=== PATIENT | male | born 1930 | race Caucasian/White ===

== ENCOUNTER 2018-09-05 08:21 | Inpatient (IN) | payer MEDICARE, BC ==
[~2018-09-05] VITALS: Ht 167.6 cm; Wt 93.0 kg
--- NOTE | 2018-09-05 08:50 | NUR ---
ED Nurse Note: patient walked into ED from home, ambulatory with cane, c/o back pain mainly on the left lower back. patient reports pain 10/10. patient reports fall on the rug at home on 09/03/18. patient is alert awake x4 girlfriend at bedside
--- NOTE | 2018-09-05 08:56 | Emergency Room Report ---
History of Present Illness General Chief Complaint: Lower Back Pain or Injury Source: Patient, Family Member Present Illness HPI The patient slipped on a rug on . He fell onto his back. He's been having difficulty ambulating at home. The pain is severe at this time and the left lower back and also upper back. He tried Tylenol but this helped removal. The pain is 10/10 at this time and when he moves about the gets worse. Says is sharp and aching pain. He denies any medical problems and believes his bones are in good health and not weak. No cough, fever, exertional pain, bruising, head trauma, LOC. The patient usually walks with a cane. His friend says he is unable to ambulate at home. His been eating without difficulty and moving his bowels but having pain when he sits down. No dysuria. Son-in-law has video of fall against table L side of chest, no LOC. H/O thyroid disease. High cholesterol. Hearing aids. 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 Nursing Documentation: PMH: Agreed; PSxH: Agreed Nursing Documentation-PMH Past Medical History: No Stated History Review of Systems All Other Systems: negative except mentioned in HPI Physical Exam Vital Signs Date Time Temp Pulse Resp B/P (MAP) Pulse Ox O2 Delivery O2 Flow Rate FiO2 09/05/18 08:42 98.1 67 18 134/81 95 Room Air Sp02 EP Interpretation: reviewed, normal General Appearance: GCS 15, mild distress, obese Head: normocephalic, atraumatic Eyes: bilateral eye normal inspection, bilateral eye PERRL, bilateral eye EOMI ENT: moist mucus membranes, other - hearing aids Neck: supple, no bony tend Respiratory: lungs clear, normal breath sounds, other - chest pain L side, referred, posterior chest, lower, no crepetance Cardiovascular #1: normal peripheral pulses, regular rate, rhythm Cardiovascular #2: 2+ radial (R) Gastrointestinal: normal bowel sounds, non tender, soft, overweight Genitourinary: no CVA tenderness, other - mild CVA tend, possibly L chest Musculoskeletal: digits/nails normal, no calf tenderness, pelvis stable, other - no point tenderness spine Neurologic: oriented x3, motor strength/tone normal, sensory intact Psychiatric: mood/affect normal Skin: normal color, no rash Medical Decision Making Diagnostic Impression: Primary Impression: Rib fractures Qualified Codes: S22.42XA - Multiple fractures of ribs, left side, initial encounter for closed fracture Additional Impressions: Hemothorax Renal insufficiency ER Course Patient presents with back pain post fall. Differential includes spinal fracture, rib fracture, back contusion, muscle spasm, renal contusion amongst others. The patient is having difficulty ambulating at this time. Evaluation will be with EKG, CT of the chest, CT lumbar spine and labs. The patient will receive gentle IV hydration, Toradol, Zofran and morphine. Still with pain. Dilaudid given. Labs unremarkable except for mild renal insufficiency. UA not produced in ED. CT chest with fx's 9 and 10 L. Small hemothorax seen by me. Lumbar spine with DJD, no fx. Pain improved. However, still unable to move without significant pain. Admitted for pain control and observation. Consideration for nerve blocks. Admit Dr. Askew with Dr. Burgess business analyst consultant. Laboratory Tests Test 09/05/18 09:06 White Blood Count 8.1 K/UL (4.8-10.8) Red Blood Count 4.35 M/UL (4.70-6.10) L Hemoglobin 13.6 G/DL (14.2-18.0) L Hematocrit 40.2 % (42.0-52.0) L Mean Corpuscular Volume 92 FL (80-99) Mean Corpuscular Hemoglobin 31.3 PG (27.0-31.0) H Mean Corpuscular Hemoglobin Concent 33.9 G/DL (32.0-36.0) Red Cell Distribution Width 11.0 % (11.6-14.8) L Platelet Count 213 K/UL (150-450) Mean Platelet Volume 6.3 FL (6.5-10.1) L Neutrophils (%) (Auto) 74.3 % (45.0-75.0) Lymphocytes (%) (Auto) 17.9 % (20.0-45.0) L Monocytes (%) (Auto) 5.7 % (1.0-10.0) Eosinophils (%) (Auto) 1.8 % (0.0-3.0) Basophils (%) (Auto) 0.4 % (0.0-2.0) Prothrombin Time 10.6 SEC (9.30-11.50) Prothrombin Time INR 1.0 (0.9-1.1) PTT 26 SEC (23-33) Sodium Level 140 MMOL/L (136-145) Potassium Level 4.1 MMOL/L (3.5-5.1) Chloride Level 105 MMOL/L (98-107) Carbon Dioxide Level 27 MMOL/L (21-32) Anion Gap 8 mmol/L (5-15) Blood Urea Nitrogen 19 mg/dL (7-18) H Creatinine 1.3 MG/DL (0.55-1.30) Estimate Glomerular Filtration Rate mL/min (>60) Glucose Level 128 MG/DL (74-106) H Calcium Level 9.0 MG/DL (8.5-10.1) Total Bilirubin 0.7 MG/DL (0.2-1.0) Aspartate Amino Transferase (AST) 15 U/L (15-37) Alanine Aminotransferase (ALT) 32 U/L (12-78) Alkaline Phosphatase 76 U/L (46-116) Troponin I 0.021 ng/mL (0.000-0.056) Total Protein 7.5 G/DL (6.4-8.2) Albumin 3.5 G/DL (3.4-5.0) Globulin 4.0 g/dL Albumin/Globulin Ratio 0.9 (1.0-2.7) L EKG Diagnostic Results Rate: bradycardiac Rhythm: NSR ST Segments: no acute changes - 1st degree AV block Rhythm Strip Diag. Results EP Interpretation: yes Rhythm: NSR, no PVC's, no ectopy CT/MRI/US Diagnostic Results CT/MRI/US Diagnostic Results #1: Imaging Test Ordered: chest Impression posterior 9 and 10 fx's. Hemothorax seen by pa CT/MRI/US Diagnostic Results #2: Imaging Test Ordered: Lumbar Impression DJD, no fx Last Vital Signs Date Time Temp Pulse Resp B/P (MAP) Pulse Ox O2 Delivery O2 Flow Rate FiO2 09/05/18 16:00 97.4 60 121/65 (83) 09/05/18 11:47 15 97 Room Air Status: improved Disposition: ADMITTED INPATIENT Condition: Serious Camilo Jara MD Sep 05, 2018 08:56
[2018-09-05] MEDS ORDERED: Morphine Sulfate 4mg/ml Inj (IV USE ONLY) IVP ONE (09:00)
[2018-09-05] MEDS ORDERED: Sodium Chloride 550 ML IV SCH (09:00)
[2018-09-05] MEDS ORDERED: Ketorolac 30mg Inj IV ONE (09:00)
[2018-09-05 09:19] LABS: BASOPHILS % (AUTO) 0.4 % (0.0-2.0); EOSINOPHILS % (AUTO) 1.8 % (0.0-3.0); HEMATOCRIT 40.2 % (42.0-52.0); HEMOGLOBIN 13.6 G/DL (14.2-18.0); LYMPHOCYTES % (AUTO) 17.9 % (20.0-45.0); MEAN CORPUSCULAR VOLUME 92 FL (80-99); MONOCYTES % (AUTO) 5.7 % (1.0-10.0); NEUTROPHILS % (AUTO) 74.3 % (45.0-75.0); PLATELET COUNT 213 K/UL (150-450); RED BLOOD COUNT 4.35 M/UL (4.70-6.10); WHITE BLOOD COUNT 8.1 K/UL (4.8-10.8)
[2018-09-05 09:24] LABS: ANION GAP 8 mmol/L (5-15); BLOOD UREA NITROGEN 19 mg/dL (7-18); CARBON DIOXIDE 27 MMOL/L (21-32); CHLORIDE 105 MMOL/L (98-107); CREATININE 1.3 MG/DL (0.55-1.30); POTASSIUM 4.1 MMOL/L (3.5-5.1); SODIUM 140 MMOL/L (136-145)
[2018-09-05 09:29] LABS: ALANINE AMINOTRANSFERASE 32 U/L (12-78); ALBUMIN 3.5 G/DL (3.4-5.0); ALBUMIN/GLOBULIN RATIO 0.9 (1.0-2.7); ALKALINE PHOSPHATASE 76 U/L (46-116); ASPARTATE AMINO TRANSFERASE 15 U/L (15-37); BILIRUBIN,TOTAL 0.7 MG/DL (0.2-1.0)
[2018-09-05] MEDS ORDERED: HYDROmorphone 1mg/ml Carpuject IVP ONE (09:45)
--- NOTE | 2018-09-05 09:50 | NUR ---
ED Nurse Note: provided water and lemon swab for the patient. girlfriend/grandson at bedside. Patient unable to give urine sample at this time.
--- NOTE | 2018-09-05 09:51 | NUR ---
ED Nurse Note: notified Dr. Jara about pt not able to give urine sample at this time. Dr. Jara ok.
[2018-09-05 09:53] VITALS: BP 128/79
--- NOTE | 2018-09-05 10:15 | Diagnostic Imaging Report ---
EXAM: CT Chest Without Intravenous Contrast CLINICAL HISTORY: TRAUMA TECHNIQUE: Axial computed tomography images of the chest without intravenous contrast. CTDI is 25.84 mGy and DLP is 971 mGy-cm. One or more of the following dose reduction techniques were used: automated exposure control, adjustment of the mA and/or kV according to patient size, use of iterative reconstruction technique. COMPARISON: No relevant prior studies available. FINDINGS: Lungs: Mild septal thickening at the peripheral lung bases. Lungs otherwise clear. Pleural space: Unremarkable. No pneumothorax. No significant effusion. Heart: Cardiomegaly. No significant pericardial effusion. Mediastinum: Small hiatal hernia. Bones/joints: Left posterior ribs 9 and 10 fractures. Degenerative changes bilateral shoulders. Degenerative changes of the spine. No dislocation. Soft tissues: 2.6 cm dystrophic calcification in the left subscapularis muscle. Vasculature: Atherosclerotic vascular disease. No thoracic aortic aneurysm. Lymph nodes: Unremarkable. No enlarged lymph nodes. IMPRESSION: Left posterior ribs 9 and 10 fractures.
--- NOTE | 2018-09-05 10:24 | Diagnostic Imaging Report ---
EXAM: CT Lumbar Spine Without Intravenous Contrast CLINICAL HISTORY: TRAUMA TECHNIQUE: Axial computed tomography images of the lumbar spine without intravenous contrast. CTDI is 22.27 mGy and DLP is 697 mGy-cm. One or more of the following dose reduction techniques were used: automated exposure control, adjustment of the mA and/or kV according to patient size, use of iterative reconstruction technique. COMPARISON: No relevant prior studies available. FINDINGS: Vertebrae: Right L4 laminectomy. Mild levoscoliosis lumbar spine. Grade 1 anterolisthesis of L3 on L4 likely degenerative. No acute fracture. No acute malalignment. Discs/spinal canal/neural foramina: T11 left paravertebral disc bulge. T12-L1 left paravertebral mild disc bulge. L1-L2 broad-based disc bulge without significant stenosis. Mild facet arthropathy. L2-3 posterior disc osteophyte complex with facet arthropathy resulting in mild to moderate central canal stenosis. Moderate bilateral neural foraminal narrowing. L3-4 broad-based disc bulge. Severe right neural foraminal narrowing and moderate to severe left neural foraminal narrowing. Facet arthropathy. L4-5 broad-based disc bulge and facet arthropathy. Mild central canal narrowing. Moderate right neural foraminal narrowing and moderate to severe left neural foraminal narrowing. L5-S1 disc osteophyte complex. Mild central canal narrowing. Severe bilateral neural foraminal narrowing. Soft tissues: Unremarkable. Vasculature: Atherosclerotic vascular disease. IMPRESSION: 1. No acute fracture or malalignment. 2. Multilevel degenerative disc disease. 3. Right L4 laminectomy.
--- NOTE | 2018-09-05 11:22 | NUR ---
ED Nurse Note: report given to Shandra ARELLANO
[2018-09-05] MEDS ORDERED: FLOMAX0.4 MG ORAL (11:29)
[2018-09-05] MEDS ORDERED: SYNTHROID100 MCG ORAL (11:29)
[2018-09-05] MEDS ORDERED: PANTOPRAZOLE SO40 MG ORAL (11:29)
[2018-09-05] MEDS ORDERED: PLAVIX75 MG ORAL (11:29)
[2018-09-05] MEDS ORDERED: ATORVASTATIN CA20 MG ORAL (11:29)
--- NOTE | 2018-09-05 11:46 | NUR ---
ED Nurse Note: report given to Don ARELLANO that patient's UA was not collected at this time, patient unable to give sample, Dr. Marek solomon with it.
--- NOTE | 2018-09-05 11:53 | NUR ---
NURSE NOTES: Patient arrived on unit via gurney. AOx4, stable, denies pain or SOB at this time. Patient is in good spirits. Patient oriented to room, unit, and call light. Patient encouraged to use call light for assistance, verbalized understanding. Skin is clean, dry, and intact. All belongings accounted for. Patient has girlfriend and son in law Jayme at bedside. Patient is comfortable in bed with call light within reach. Will continue to monitor.
[2018-09-05 12:00] VITALS: BP 142/55
[2018-09-05] MEDS ORDERED: HYDROcodone/Acetamin 5/325 tab ORAL PRN (12:48)
--- NOTE | 2018-09-05 13:18 | History and Physical ---
History of Present Illness General Date patient seen: Sep 05, 2018 Time patient seen: 13:18 Reason for Hospitalization: Lower Back Pain or Injury Present Illness HPI 88 yo man presents with complaint of back pain The patient slipped on a rug on . He fell onto his back. He's been having difficulty ambulating at home. The pain is severe at this time and the left lower back and also upper back. He tried Tylenol but this helped removal. The pain is 10/10 at this time and when he moves about the gets worse. Says is sharp and aching pain. He denies any medical problems and believes his bones are in good health and not weak. No cough, fever, exertional pain, bruising, head trauma, LOC. The patient usually walks with a cane. His friend says he is unable to ambulate at home. His been eating without difficulty and moving his bowels but having pain when he sits down. No dysuria. Son-in-law has video of fall against table L side of chest, no LOC. In the ED, patient required multiple pushes of IV opiate and was admitted for uncontrolled pain. A CT scan showed left sided posterior rib fractures PMHX: BPH H/O thyroid disease. High cholesterol. FHX:Reviewed by me; not pertinent for this encounter SHx; No tobacco Hearing aids. Allergies: Coded Allergies: No Known Allergies (Unverified , 09/05/18) Medication History Scheduled Atorvastatin Calcium* (Atorvastatin Calcium*), 10 MG ORAL BEDTIME, (Reported) Clopidogrel Bisulfate* (Plavix*), 75 MG ORAL DAILY, (Reported) Duloxetine Hcl* (Cymbalta*), 90 MG ORAL DAILY, (Reported) Levothyroxine Sodium* (Synthroid*), 100 MCG ORAL DAILY, (Reported) Linagliptin (Tradjenta), 5 MG PO DAILY, (Reported) Pantoprazole* (Pantoprazole*), 40 MG ORAL DAILY, (Reported) Tamsulosin HCl (Flomax), 0.4 MG ORAL DAILY, (Reported) Temazepam (Temazepam*), 15 MG ORAL BEDTIME, (Reported) Patient History History Provided By: Patient Healthcare decision maker Rose Villanueva Resuscitation status Full Code Advanced Directive on File Rose will bring Review of Systems Constitutional: Reports: malaise, weakness Eye: Reports: no symptoms ENT: Reports: no symptoms Respiratory: Reports: no symptoms Cardiovascular: Reports: no symptoms Gastrointestinal: Reports: no symptoms Genitourinary: Reports: no symptoms Musculoskeletal: Reports: back pain Skin: Reports: no symptoms Psychiatric: Reports: no symptoms Neurological: Reports: no symptoms Endocrine: Reports: no symptoms Hematologic/Lymphatic: Reports: no symptoms All Other Systems: negative except mentioned in HPI Physical Exam General Appearance: alert, mild distress Lines, tubes and drains: peripheral HEENT: normocephalic, atraumatic, anicteric, mucous membranes moist Neck: non-tender, supple Respiratory/Chest: lungs clear, normal breath sounds Breasts: no masses Cardiovascular/Chest: normal peripheral pulses, normal rate, regular rhythm Abdomen: normal bowel sounds, non tender, soft Genitourinary/Rectal: normal genital exam Extremities: normal range of motion, non-tender Skin Exam: normal pigmentation, warm/dry, cyanotic Neurologic: lockstitch pocket setter II-XII grossly normal Lymphatic: anterior cervical, posterior cervical (L) Musculoskeletal: other - posterior rib pain on left Last 24 Hour Vital Signs Date Time Temp Pulse Resp B/P (MAP) Pulse Ox O2 Delivery O2 Flow Rate FiO2 09/05/18 11:47 98.1 15 128/79 97 Room Air 09/05/18 11:19 Room Air 09/05/18 09:53 98.1 56 15 128/79 97 Room Air 09/05/18 09:31 98.1 09/05/18 09:31 98.1 09/05/18 09:31 98.1 09/05/18 08:42 98.1 67 18 134/81 95 Room Air Laboratory Tests Test 09/05/18 09:06 White Blood Count 8.1 K/UL (4.8-10.8) Red Blood Count 4.35 M/UL (4.70-6.10) L Hemoglobin 13.6 G/DL (14.2-18.0) L Hematocrit 40.2 % (42.0-52.0) L Mean Corpuscular Volume 92 FL (80-99) Mean Corpuscular Hemoglobin 31.3 PG (27.0-31.0) H Mean Corpuscular Hemoglobin Concent 33.9 G/DL (32.0-36.0) Red Cell Distribution Width 11.0 % (11.6-14.8) L Platelet Count 213 K/UL (150-450) Mean Platelet Volume 6.3 FL (6.5-10.1) L Neutrophils (%) (Auto) 74.3 % (45.0-75.0) Lymphocytes (%) (Auto) 17.9 % (20.0-45.0) L Monocytes (%) (Auto) 5.7 % (1.0-10.0) Eosinophils (%) (Auto) 1.8 % (0.0-3.0) Basophils (%) (Auto) 0.4 % (0.0-2.0) Prothrombin Time 10.6 SEC (9.30-11.50) Prothromb Time International Ratio 1.0 (0.9-1.1) Activated Partial Thromboplast Time 26 SEC (23-33) Sodium Level 140 MMOL/L (136-145) Potassium Level 4.1 MMOL/L (3.5-5.1) Chloride Level 105 MMOL/L (98-107) Carbon Dioxide Level 27 MMOL/L (21-32) Anion Gap 8 mmol/L (5-15) Blood Urea Nitrogen 19 mg/dL (7-18) H Creatinine 1.3 MG/DL (0.55-1.30) Estimat Glomerular Filtration Rate mL/min (>60) Glucose Level 128 MG/DL (74-106) H Calcium Level 9.0 MG/DL (8.5-10.1) Total Bilirubin 0.7 MG/DL (0.2-1.0) Aspartate Amino Transf (AST/SGOT) 15 U/L (15-37) Alanine Aminotransferase (ALT/SGPT) 32 U/L (12-78) Alkaline Phosphatase 76 U/L (46-116) Troponin I 0.021 ng/mL (0.000-0.056) Total Protein 7.5 G/DL (6.4-8.2) Albumin 3.5 G/DL (3.4-5.0) Globulin 4.0 g/dL Albumin/Globulin Ratio 0.9 (1.0-2.7) L Height (Feet): 5 Height (Inches): 6.00 Weight (Pounds): 205 Medications Current Medications Medications (Trade) Dose Ordered Sig/Misha Route PRN Reason Start Time Stop Time Status Last Admin Dose Admin Acetaminophen/ Hydrocodone Bitart ([place] 5/325) 1 tab Q4H PRN ORAL Moderate Pain (Pain Scale 4-6) 09/05/18 12:48 09/12/18 12:47 Atorvastatin Calcium (Lipitor) 10 mg BEDTIME ORAL 09/05/18 21:00 10/05/18 20:59 Clopidogrel Bisulfate (Plavix) 75 mg DAILY ORAL 09/06/18 09:00 10/06/18 08:59 Hydromorphone HCl (Dilaudid) 1 mg Q3H PRN IVP Severe pain(7-10) 09/05/18 12:48 09/12/18 12:47 Levothyroxine Sodium (Synthroid) 100 mcg ACBREAKFAST ORAL 09/06/18 06:30 10/06/18 06:29 Pantoprazole (Protonix) 40 mg DAILY ORAL 09/06/18 09:00 10/06/18 08:59 Sodium Chloride 550 ml @ 150 mls/hr Q3H40M IV 09/05/18 09:00 10/05/18 08:59 09/05/18 09:10 Tamsulosin HCl (Flomax) 0.4 mg DAILY ORAL 09/06/18 09:00 10/06/18 08:59 Assessment/Plan Status: stable Status Narrative 88 yo man s/p mechanical fall with no syncope and multiple rib fractures admitted for pain control Assessment/Plan #Rib fractures #trauma s/p ground level fall -CT results noted -continue IV hyrdromorphone as needed- will transition to PO pain meds -Ice packs -PT/ambulation #BPH -continue tamsulosin #Hyperlipidemia -continue statin #hypothyroidism -continue levothyroxine DVT Prophylaxis: SCD's Code Status: Full Hospital Classification declaration: Based on this initial evaluation and depending on the patient's clinical course I anticipate that this patient will require hospitalization for at least 1 day- will place in Observation status Disposition: Once the patient is stable to leave the hospital I anticipate the patient will likely be discharged to the following environment: Home I spent 70 minutes on this patients care and 36 minutes was dedicated to counseling and care coordination Time of note may not reflect time of encounter Nilesh Burgess MD Sep 05, 2018 13:18
[2018-09-05] MEDS ORDERED: TEMAZEPAM15 MG ORAL (14:00)
[2018-09-05] MEDS ORDERED: TRADJENTA5 MG PO (14:00)
[2018-09-05] MEDS ORDERED: CYMBALTA60 MG ORAL (14:00)
[2018-09-05] MEDS: HYDROmorphone 1mg/ml Carpuject IVP PRN ×3 (15:59→22:19)
[2018-09-05 16:00] VITALS: BP 121/65
--- NOTE | 2018-09-05 19:30 | NUR ---
HAND-OFF: Report given to John ARELLANO. Patient stable.
--- NOTE | 2018-09-05 19:31 | NUR ---
NURSE NOTES: Report taken from ADAN Devi. Patient is awake and in bed. Stating that he has a lot of pain through his back and ribs, 10/10. Having a lot difficutly laying comfortably. IV site c/d/i and hep locked. Not able to use the restroom, urinal at bedside, will collect UA sample. Daughter Rose has power of workers compensation defense attorney, will come in the AM to fill in some patient history. No skin issues present. Bed in lowest position, call light within reach.
[2018-09-05 20:00] VITALS: BP 124/74
[2018-09-05] MEDS: Heparin 5000 units/ml inj SUBQ SCH (21:15)
[2018-09-06] VITALS: BP 141/78
[2018-09-06 04:00] VITALS: BP 139/77
[2018-09-06 05:18] LABS: BASOPHILS % (AUTO) 0.6 % (0.0-2.0); EOSINOPHILS % (AUTO) 3.2 % (0.0-3.0); HEMATOCRIT 36.7 % (42.0-52.0); HEMOGLOBIN 12.3 G/DL (14.2-18.0); LYMPHOCYTES % (AUTO) 26.6 % (20.0-45.0); MEAN CORPUSCULAR VOLUME 94 FL (80-99); MONOCYTES % (AUTO) 9.3 % (1.0-10.0); NEUTROPHILS % (AUTO) 60.4 % (45.0-75.0); PLATELET COUNT 188 K/UL (150-450); RED CELL DISTRIBUTION WIDTH 11.7 % (11.6-14.8); WHITE BLOOD COUNT 6.6 K/UL (4.8-10.8)
[2018-09-06 05:21] LABS: ANION GAP 5 mmol/L (5-15); BLOOD UREA NITROGEN 23 mg/dL (7-18); CALCIUM 8.6 MG/DL (8.5-10.1); CARBON DIOXIDE 29 MMOL/L (21-32); CHLORIDE 107 MMOL/L (98-107); CREATININE 1.3 MG/DL (0.55-1.30); POTASSIUM 4.2 MMOL/L (3.5-5.1); SODIUM 141 MMOL/L (136-145)
[2018-09-06] MEDS: HYDROmorphone 1mg/ml Carpuject IVP PRN ×3 (06:17→15:00)
--- NOTE | 2018-09-06 07:32 | NUR ---
HAND-OFF: Report given to ADAN Ochoa. Patient is awake and seated on the edge of bed, patient is stable.
--- NOTE | 2018-09-06 07:35 | NUR ---
NURSE NOTES: Patient lying in bed awake. Complain of pain 5/10 and will continue to monitor. Skin intact and dry. IV dressing intact and dry. Bed lowest position. Call light within reach. Will continue to monitor.
[2018-09-06 08:00] VITALS: BP 126/58
[2018-09-06] MEDS: Tamsulosin 0.4mg cap ORAL SCH (08:38)
[2018-09-06] MEDS: DULoxetine 30mg cap ORAL SCH (08:38)
[2018-09-06] MEDS: Heparin 5000 units/ml inj SUBQ SCH ×2 (08:42→21:19)
--- NOTE | 2018-09-06 11:53 | NUR ---
NURSE NOTES: received report from ADAN Ochoa. patient in bed. AOx4. no respiratory distress noted. IV on LH intact. bed in the lowest position. call light within reach. will continue to monitor.
[2018-09-06 12:00] VITALS: BP 144/66
--- NOTE | 2018-09-06 14:13 | NUR ---
PT Note PT mikhail completed, tx initiated. Patient c/o pain with any movement in bed. He required constant verbal cues and hand=-over-hand techniques for all tasks. Patient needs PT services to increase his muscle strength and instruct on proper body mechanics to improve his functional mobility and gait. Addendum: 09/06/18 at 1414 by MARQUIS LIGHT PT Amended: Links added.
--- NOTE | 2018-09-06 15:20 | NUR ---
CASE MANAGEMENT: REVIEW 88/M PRESENTED TO ED FROM HOME CC: UNABLE TO WALK . MULTIPLE FALLS . BACK PAIN 03/11 SI: RIB FRACTURES . HEMOTHORAX . RENAL INSUFFICIENCY T 97.4 HR 56 RR 18 BP 142/55 SAT 97% ROOM AIR BUN 19 IS: NS IVF BOLUS X1 TORADOL IV X1 MORPHINE IV X1 DILAUDID IV X1 PATIENT ADMITTED TO MED/SURG UNIT 09/05/2018 DCP: PATIENT IS FROM HOME
--- NOTE | 2018-09-06 15:59 | NUR ---
NURSE NOTES: Spoke to regarding patient and new order received. Order read back and carried out.
[2018-09-06 16:00] VITALS: BP 103/63
[2018-09-06] MEDS ORDERED: HYDROmorphone 1mg/ml Carpuject IVP PRN (16:07)
--- NOTE | 2018-09-06 19:07 | NUR ---
HAND-OFF: Report given to ADAN Lopez.
--- NOTE | 2018-09-06 19:45 | NUR ---
NURSE NOTES: Report taken from ADAN Velasco. Patient is awake and active in his room, A&Ox3, confused as to why he is still here. No signs of distress on room air. pain 7/10, decreases slightly when on bedrest. IV site c/d/i and patent. He is able to ambulate with cane assist. No skin issues present. Continue to monitor. Bed in lowest position, call light within reach.
[2018-09-06 20:00] VITALS: BP 134/76
--- NOTE | 2018-09-06 21:12 | NUR ---
Nurse's notes: This RN was called by ADAN Lopez for assistance after he brought this patient down on a wheelchair in front of the hospital entrance to meet his grandson. Found patient on his feet, very restless, refusing to be assisted back to his wheelchair until his grandson arrives. When Mr. Butts's grandson arrived, the patient now wanted to leave with his grandson on foot. John and this com writer tried to explain to him that he needs to be medically cleared before he can leave; patient observed to be having a hard time understanding the need to have medical clearance prior to DC. As patient was very unsteady on his feet despite him having a cane (patient also observed to be grimacing in pain intermittently), this com writer tried to steady him by holding on to his right arm. Security was called for assistance as John, at this time, have left to go back to the floor for his other patients. Security came and also explained to the patient why he can not leave the hospital; still no signs of understanding of teaching. After some time, the patient was finally convinced to sit on the wheelchair, Maria T offered to watch the patient with the grandson. After a few minutes, patient was safely brought back to the floor.
[2018-09-06] MEDS ORDERED: LORazepam 0.5mg tab ORAL PRN (21:30)
--- NOTE | 2018-09-06 22:08 | NUR ---
NURSE NOTES: At 1920, was up with his cane ambulating and wanted to go down to lobby to greet his grandson. RN placed patient in wheelchair and went down to first floor with patient. RN noticed that patient was getting slightly agitated with RNs request to stay in wheelchair due to his history of falls. When his grandson came, RN noted a change in the patient. He became upset and began talking about him and his grandson had plans somewhere and that he wanted to walk away from the hospital grounds and care. The grandson and RN continually explained the purpose of him being in the hospital. RN called charge nurse, Nikole ARELLANO and security, for assistance. When Nikole came down she noted patients agitation as well. Charge nurse told RN to go and treat the other patients. Patient came back to floor with grandson and security. In his room the patient continued to be upset. Was stating that RN was holding him against his will and that something "weird" was happening with his care. RN talked to patient about his care and his rights as a patient. RN and grandson both stayed with patient until calm. Patient later stated that he did not remember why he was upset or agitated. Patient is not stable, A&Ox3-4 and is fully cooperative.
--- NOTE | 2018-09-06 22:09 | General Progress Note ---
Assessment/Plan Status: not improved, deteriorating Assessment/Plan #Rib fractures #trauma s/p ground level fall -CT results noted- multiple rib fractures -continue IV hydromorphone as needed- will attempt transition to PO pain meds -Ice packs -PT/ambulation -Pain consult in AM- likely will need nerve block #BPH -continue tamsulosin #Hyperlipidemia -continue statin #hypothyroidism -continue levothyroxine #CKD -creatinine stable -avoid nephrotoxins/renally dose meds #CVA/TIA? -On clopidogrel for unclear reasons- will clarify DVT Prophylaxis: SCD's, heparin Code Status: Full Hospital Classification declaration: Will admit to inpatient given uncontrolled pain requiring IV opiates Disposition: Once the patient is stable to leave the hospital I anticipate the patient will likely be discharged to the following environment: Home I spent 70 minutes on this patients care and 36 minutes was dedicated to counseling and care coordination Time of note may not reflect time of encounter Subjective Date patient seen: Sep 06, 2018 Time patient seen: 15:44 ROS Limited/Unobtainable: No Constitutional: Reports: malaise, weakness HEENT: Reports: no symptoms Cardiovascular: Reports: no symptoms Respiratory: Reports: no symptoms Gastrointestinal/Abdominal: Reports: no symptoms Genitourinary: Reports: no symptoms Neurologic/Psychiatric: Reports: no symptoms Endocrine: Reports: no symptoms Hematologic/Lymphatic: Reports: no symptoms Allergies: Coded Allergies: No Known Allergies (Unverified , 09/05/18) All Systems: reviewed and negative except above Subjective Events of overnight noted Chart reviewed by me Patient with worsening pain with movement after working with PT Requiring IV opiates Difficulty in mobilizing this afternoon Discharge on hold Objective Last 24 Hour Vital Signs Date Time Temp Pulse Resp B/P (MAP) Pulse Ox O2 Delivery O2 Flow Rate FiO2 09/06/18 16:00 97.6 66 20 103/63 (76) 95 09/06/18 12:00 97.3 63 20 144/66 (92) 96 09/06/18 09:00 Room Air 09/06/18 08:00 97.4 59 20 126/58 (80) 95 09/06/18 04:00 97.2 60 18 139/77 (97) 94 09/06/18 00:00 97.2 65 18 141/78 (99) 95 Intake and Output 09/05/18 09/06/18 19:00 07:00 Intake Total 340 ml 357 ml Output Total 0 ml Balance 340 ml 357 ml Intake Oral 340 ml 357 ml Output Urine Total 0 ml # Voids 1 1 Laboratory Tests 09/06/18 04:55: White Blood Count 6.6, Red Blood Count 3.90L, Hemoglobin 12.3L, Hematocrit 36.7L , Mean Corpuscular Volume 94, Mean Corpuscular Hemoglobin 31.6H, Mean Corpuscular Hemoglobin Concent 33.6, Red Cell Distribution Width 11.7, Platelet Count 188, Mean Platelet Volume 6.6, Neutrophils (%) (Auto) 60.4, Lymphocytes (% ) (Auto) 26.6, Monocytes (%) (Auto) 9.3, Eosinophils (%) (Auto) 3.2H, Basophils (%) (Auto) 0.6, Sodium Level 141, Potassium Level 4.2, Chloride Level 107, Carbon Dioxide Level 29, Anion Gap 5, Blood Urea Nitrogen 23H, Creatinine 1.3, Estimat Glomerular Filtration Rate , Glucose Level 111H, Calcium Level 8.6 Height (Feet): 5 Height (Inches): 6.00 Weight (Pounds): 205 General Appearance: severe distress, thin EENT: PERRL/EOMI, normal ENT inspection, TMs normal, pharynx normal Neck: non-tender Cardiovascular: normal peripheral pulses, tachycardia Respiratory/Chest: other - left posterior chest wall tenderness Abdomen: normal bowel sounds, non tender, soft Pelvis: normal external exam Extremities: normal range of motion Edema: no edema noted Arm (L), no edema noted Arm (R) Neurologic: chemists II-XII grossly normal Skin: normal pigmentation Lymphatic: normal anterior cervical (L), normal anterior cervical (R) Nilesh Burgess MD Sep 06, 2018 22:09
[2018-09-06 22:48] LABS: APPEARANCE,URINE CLEAR; BILIRUBIN, URINE NEGATIVE (NEGATIVE); GLUCOSE, URINE (UA) NEGATIVE (NEGATIVE); KETONES,URINE NEGATIVE (NEGATIVE); LEUKOCYTE ESTERASE ,URINE 1+ (NEGATIVE); NITRITE,URINE NEGATIVE (NEGATIVE); PH,URINE 5 (4.5-8.0); PROTEIN,URINE 1+ (NEGATIVE); UROBILINOGEN,URINE NORMAL MG/DL (0.0-1.0)
[2018-09-06 22:49] LABS: COLOR,URINE YELLOW
[2018-09-07 00:04] VITALS: BP 134/72
[2018-09-07 04:11] VITALS: BP 131/70
[2018-09-07] MEDS: HYDROcodone/Acetamin 10/325 tab ORAL PRN ×2 (06:12→11:13)
--- NOTE | 2018-09-07 07:24 | NUR ---
HAND-OFF: Report given to ADAN Alves. Vitals stable, patient alert and at bedside.
[2018-09-07 08:00] VITALS: BP 150/96
[2018-09-07] MEDS: Tamsulosin 0.4mg cap ORAL SCH (08:44)
[2018-09-07] MEDS: DULoxetine 30mg cap ORAL SCH (08:45)
[2018-09-07] MEDS: Heparin 5000 units/ml inj SUBQ SCH ×2 (08:46→08:55)
[2018-09-07] MEDS ORDERED: HYDROCODON-ACE1 EA13 ORAL (08:55)
--- NOTE | 2018-09-07 09:01 | Discharge Summary ---
Discharge Summary Hospital Course Date of Admission Sep 05, 2018 at 09:45 Date of Discharge 09/07/18 Admitting Diagnosis Unable To Ambulate, Falls, Trauma HPI Arslan Butts is a 88 year old male who was admitted on Sep 05, 2018 at 09:45 for Unable To Ambulate/Falls/Trauma Hospital Course Patient was admitted to the medical service with GLF, found to have left posterior ribs 9 and 10 fractures. He was treated supportively with IV Dilaudid which he tolerated well. Pain levels improved and he was ambulating at baseline using a cane. He will be discharged home with home services and PT as arranged by case management. Time spent in preparing discharge which included coordination with family, nursing and case management was 32 minutes Discharge Discharge Disposition Patient was discharged to home Discharge Diagnoses: (1) Rib fractures Andre Linton MD Sep 07, 2018 09:01
--- NOTE | 2018-09-07 09:54 | NUR ---
NURSE NOTES: Dr Ram here seen pt gave okay for discharge home. Satellite Manager took prescriptions , for hike across the street, copayment paid by patient.; $3.67. Family member is at bedside. Current plan of care will be followed.
--- NOTE | 2018-09-07 12:50 | NUR ---
NURSE NOTES: Pt discharged prepared, caption writer retrieved personal medications from pharmacy. IV removed, name tag removed. Pt has his hearing aids in place . Wearing his belongings. Cell phone in his pocket. Has cane near him. Daughter went to get her car from parking lot. Pt will be assisted downstairs with wheelchair
--- NOTE | 2018-09-07 13:15 | NUR ---
NURSE NOTES: Pt discharged with daughter, Pt is in stable condition. Dr. Ram gave prescription for pain medication . Daughter requested that tech writer phone Dr Ram due to father pain during position change. made aware of pt concerns. As wellas elevated blood pressure. Per pt has blood pressure medication at home , but does not remember what kind. did not give any new orders in regards to blood pressure.
--- NOTE | 2018-09-07 19:28 | Cardiology Report ---
APPROVED REPORT EKG Measurement Heart [id number] Sinus bradycardia with 1st degree AV block Otherwise normal ECG
--- NOTE | 2018-09-08 11:11 | NUR ---
CHILD WELFARE DIRECTOR Co-Signature Notes: Reviewed patient's chart. Reviewed and approved CHILD WELFARE DIRECTOR notes Addendum: 09/08/18 at 1112 by JAMES MUKHERJEE PT,MG Amended: Links added.
== END 2018-09-07 13:15 | disposition home or self-care (01) | DRG 185 ==
LOC: EMR 08:43 → 3E 09:45 → EDBEDREQ 11:01 → 3E 09-06 23:02
DX: S22.42XA Multiple fractures of ribs, left side, initial encounter for closed fracture (principal); W01.0XXA Fall on same level from slipping, tripping and stumbling without subsequent striking against object, initial encounter; N40.0 Benign prostatic hyperplasia without lower urinary tract symptoms; E78.5 Hyperlipidemia, unspecified; E03.9 Hypothyroidism, unspecified; N18.9 Chronic kidney disease, unspecified
CPT/HCPCS: 36415; 71250; 72131; 80048; 80053; 81001; 84484; 85025; 85610; 85730; 87086; 93005; 96361; 96374; 96375; 99285